=== PATIENT | female | born 1965 | race Caucasian/White ===

== ENCOUNTER 2016-09-28 11:57 | Emergency (ER) | payer OTHER ==
[~2016-09-28 11:57] MED LIST: ACYCLOVIR PO; ALBUTEROL17 GM INH; AMBIEN; AMBIEN10 MG PO; ANSAID100 MG PO; ATIVAN0.5 M1 PO; BACLOFEN10 MG PO; BACTRIM DS TABL1 TA1 PO; BACTRIM DS TABL1 TAB PO; BENZONATATE PO; BP PILL; CATAFLAM50 MG PO; CATAPRES0.1 MG PO; CELEXA; CELEXA PO; CIPRO PO; COGENTIN PO; DARVOCET-N 1001 TA1 DOB; DARVOCET-N 1001 TA1 PO; DICLOFENAC PO; ERYTHROMYCIN O3.5 G1 OD; FLEXERIL PO; FLEXERIL10 M1 PO; FLEXERIL10 MG PO; HALDOL PO; HYDROCHLOROTHIA25 MG PO; IBUPROFEN PO; IBUPROFEN800 MG PO; KLONOPIN; KLONOPIN PO; KLONOPIN0.5 MG PO; KLONOPIN1 MG PO; LORTAB 10-5001 EACH PO; LORTAB 5/500 TA1 TA1 PO; LORTAB 7.5-5001 TAB PO; MEDROL PO; MOBIC PO; NAPROSYN500 MG PO; NAPROXEN PO; NEURONTIN300 MG PO; NO MEDICATIONS; PERCOCET; PERCOCET 10/3251 TAB; PERCOCET PO; PHENERGAN25 M1 DOB; PHENERGAN25 MG PO; PREDNISONE PO; PRENATAL FORMUL1 TA3 PO; PRILOSEC20 MG PO; PYRIDIUM PO; REMERON; ROBAXIN500 MG PO; THIAMINE HCL100 MG PO; TRAZODONE PO; ULTRAM PO; UNKNOWN BP MED; UNKNOWN PAIN MED; VICODIN 5/1 TAB 5/50 PO; VICODIN 5/500 T1 TAB PO; VITAL-D RX TABL1 TAB PO; VOLTAREN 0.1%2.5 M1 OD; VOLTAREN75 MG PO; ZOFRAN PO
[2016-10-01] MEDS ORDERED: NEURONTIN PO (15:48)
[2016-10-01] MEDS ORDERED: KLONOPIN PO (15:49)
[2016-10-01] MEDS ORDERED: LOPRESSOR PO (15:49)
[2016-10-01] MEDS ORDERED: HYDROCODON-ACE1 EAC5 PO (17:15)
[2016-10-01] MEDS ORDERED: BACTRIM DS TABL1 TA1 PO (17:15)
[2016-10-01] MEDS ORDERED: IBUPROFEN PO (17:16)
[2016-11-01] MEDS ORDERED: LISINOPRIL PO (04:40)
== END 2016-09-28 12:30 | disposition home or self-care (01) ==
LOC: CED 11:57
DX: T25.221A Burn of second degree of right foot, initial encounter (principal); L03.115 Cellulitis of right lower limb; F17.200 Nicotine dependence, unspecified, uncomplicated; I10 Essential (primary) hypertension; Z23 Encounter for immunization; X08.8XXA Exposure to other specified smoke, fire and flames, initial encounter; Y92.009 Unspecified place in unspecified non-institutional (private) residence as the place of occurrence of the external cause
CPT/HCPCS: 90471; 90715; 99283

== ENCOUNTER 2016-11-01 05:33 | Emergency (ER) | payer OTHER ==
[~2016-11-01 05:33] MED LIST changes: +HYDROCODON-ACE1 EAC5 PO; +LISINOPRIL PO; +LOPRESSOR PO; +NEURONTIN PO
== END 2016-11-01 10:58 | disposition home or self-care (01) ==
LOC: SED 05:33
DX: F41.1 Generalized anxiety disorder (principal); F10.129 Alcohol abuse with intoxication, unspecified; F41.8 Other specified anxiety disorders; F17.210 Nicotine dependence, cigarettes, uncomplicated; Z88.5 Allergy status to narcotic agent; Z79.899 Other long term (current) drug therapy
CPT/HCPCS: 96372; 99283; J2060

== ENCOUNTER 2016-11-21 02:28 | Emergency (ER) | payer OTHER ==
[2016-11-21 02:15] LABS: URINE SOURCE CLEAN CATCH
[2016-11-21 02:17] LABS: URINE APPEARANCE CLEAR; URINE BILIRUBIN NEG (NEG); URINE BLOOD NEG (NEG); URINE COLOR YELLOW; URINE GLUCOSE NEG (NORM); URINE KETONE NEG (NEG); URINE LEUKOCYTE ESTERASE 1+ (NEG); URINE NITRATE NEG (NEG); URINE PROTEIN NEG (NEG); URINE SPECIFIC GRAVITY 1.015 (1.003-1.035); URINE UROBILINOGEN 0.2 MG/DL (NORM)
[2016-11-21 02:18] LABS: MICRO INDICATED? YES
[2016-11-21 02:24] LABS: CULTURE INDICATED? YES; URINE BACTERIA NEG (NEG); URINE MUCUS PRESENT; URINE SQUAMOUS EPITHELIAL CELL MODERATE /[HPF]
[2016-11-21] MEDS ORDERED: CIPRO250 M1 (17:12)
[2016-11-21] MEDS ORDERED: ZOFRAN (17:12)
[2016-11-21] MEDS ORDERED: TYLENOL #3 (17:12)
== END 2016-11-21 03:02 | disposition home or self-care (01) ==
LOC: SED 02:28
PROVIDERS: Emergency Medicine
DX: N15.9 Renal tubulo-interstitial disease, unspecified (principal); I10 Essential (primary) hypertension; M54.9 Dorsalgia, unspecified; G89.29 Other chronic pain; Z88.8 Allergy status to other drugs, medicaments and biological substances; F17.210 Nicotine dependence, cigarettes, uncomplicated; Z88.5 Allergy status to narcotic agent
CPT/HCPCS: 81003; 87086; 96372; 99283; J2360

== ENCOUNTER 2016-11-21 17:31 | Emergency (ER) | payer OTHER ==
[~2016-11-21 17:31] MED LIST changes: +CIPRO250 M1; +TYLENOL #3; +ZOFRAN
[2016-11-21 17:41] LABS: URINE SOURCE CLEAN CATCH
[2016-11-21 17:45] LABS: URINE APPEARANCE CLEAR; URINE BILIRUBIN NEG (NEG); URINE BLOOD NEG (NEG); URINE COLOR YELLOW; URINE GLUCOSE NEG (NORM); URINE KETONE TRACE (NEG); URINE LEUKOCYTE ESTERASE TRACE (NEG); URINE NITRATE NEG (NEG); URINE PROTEIN NEG (NEG); URINE SPECIFIC GRAVITY 1.025 (1.003-1.035)
[2016-11-21 17:46] LABS: BASOPHIL# 0.1 X10e3 (0-0.3); BASOPHIL% 1.2 % (0-2.5); EOSINOPHIL# 0.3 X10e3 (0-0.7); EOSINOPHIL% 5.3 % (0.0-7.0); HEMATOCRIT 41.4 % (35.0-45.0); HEMOGLOBIN 14.3 gm/dL (12.0-16.0); LYMPHOCYTE# 1.7 X10e3 (1.0-3.5); LYMPHOCYTE% 29.7 % (17.0-45.0); MEAN CELL VOLUME 99.7 FL (83-96); MEAN CORPUSCULAR HEMOGLOBIN 34.4 PG (28-34); MEAN CORPUSCULAR HGB CONC 34.5 g/dL (30-36); MONOCYTE# 0.5 X10e3 (0-1.0); NEUTROPHIL# 3.2 X10e3 (1.5-7.1); NEUTROPHIL% 54.8 % (40-75); PLATELET COUNT 189 X10e3 (140-420); RED BLOOD COUNT 4.15 X10e (3.90-5.30); RED CELL DISTRIBUTION WIDTH 15.7 % (11.0-15.5); WHITE BLOOD COUNT 5.9 X10e3 (4.0-10.5)
[2016-11-21 17:48] LABS: MICRO INDICATED? YES
[2016-11-21 17:48] LABS: DIFF IND NO
[2016-11-21 17:55] LABS: CULTURE INDICATED? YES; URINE BACTERIA 1+ (NEG); URINE RBC 0-2 /[HPF] (0-2); URINE SQUAMOUS EPITHELIAL CELL FEW /[HPF]
[2016-11-21 18:26] LABS: ALBUMIN SERUM 4.4 g/dL (3.5-5.0); BILIRUBIN, DIRECT 0.1 mg/dL (0.0-0.2); BILIRUBIN,INDIRECT 0.2 mg/dL (0.0-0.9); BILIRUBIN,TOTAL 0.3 mg/dL (0.2-2.0); BUN/CREATININE RATIO 16.66; CALCIUM SERUM 8.8 mg/dL (8.4-10.2); CREATININE SERUM 0.9 mg/dL (0.6-1.4); GLOM FILT RATE Estimated 74.6 mL/min (>60); PROTEIN TOTAL SERUM 7.8 g/dL (6.0-8.3)
[2016-11-21 18:33] LABS: MAGNESIUM 1.8 mg/dL (1.6-3.0)
[2016-11-21 18:40] LABS: AMPHETAMINE NEG (NEG); BARBITURATES NEG (NEG); BENZODIAZEPINES NEG (NEG); COCAINE NEG (NEG); TRICYCLIC ANTIDEPRESSANTS POS (NEG); U METHADONE NEG (NEG)
== END 2016-11-21 19:20 | disposition home or self-care (01) ==
LOC: SED 17:31
PROVIDERS: Physician Assistant
DX: M54.6 Pain in thoracic spine (principal); I10 Essential (primary) hypertension; F41.9 Anxiety disorder, unspecified; F17.210 Nicotine dependence, cigarettes, uncomplicated
CPT/HCPCS: 36415; 80048; 80076; 80307; 81003; 83690; 83735; 85025; 87086; 96361; 96374; 99284; J2405

== ENCOUNTER 2016-11-24 18:55 | Emergency (ER) | payer OTHER ==
--- NOTE | ~2016-11-24 | EKG ---
PATIENT: KRISSY BRADLEY UNIT #: [id number] Ventricular Rate: 74 BPM Atrial Rate: 74 BPM P-R Interval: 128 ms QRS Duration: 92 ms Q-T Interval: 416 ms QTC Calculation(Bezet): 461 ms P [place]: 66 degrees Calculated R [place]: 66 degrees Calculated T [place]: 49 degrees Diagnosis Line: Normal sinus rhythm Diagnosis Line: Normal ECG Diagnosis Line: When compared with ECG of 31-AUG-2016 11:28, Diagnosis Line: No significant change was found Diagnosis Line: Confirmed by CRISTHIAN ARENAS MD ([id number]) on 11/25/2016 Diagnosis Line: 10:42:44 PM INTERPRETING MD: DEEPA LEON
--- NOTE | ~2016-11-24 | CR72 ---
[facility] A Service of [facility] RADIOLOGY TEXT RESULTS PATIENT: KRISSY BRADLEY LOCATION: [facility] : [birth year] UNIT #: [id number] AGE: [address]: Izabel Lozano MD SEX: F ORDER DR: [id number] [facility] [address] [place], [place] [address] [id number] MR#: [id number] Acc #: [id number] NAME: KRISSY BRADLEY : 1965 SEX: F STUDY DATE/TIME: 11/24/2016 19:19 UNIT: [facility] ROOM: STUDY DESCRIPTION: CR Chest Single View Portable Attending Physician: Michael Mills M.D. Ordering Physician: Michael Mills M.D. Primary Care Physician: Oswald Sanches M.D. MEDICAL IMAGING REPORT This report is preliminary unless electronic signature is present EXAM Portable chest. DATE OF EXAM 11/24/2016 INDICATIONS 51-year-old female with chest pain, dizziness, syncope today. COMPARISON 07/24/2016 FINDINGS Lungs well expanded. No acute infiltrate. Heart size stable. Visualized osseous structures are unremarkable. IMPRESSION No active disease. Dictated by... Kalin Wasserman M.D. THIS IS AN ELECTRONICALLY VERIFIED REPORT Kalin Wasserman M.D. at 11/25/2016 10:04 AM MAYNOR/deon TD: 11/24/2016 23:41 JOB #: [id number] MEDICAL IMAGING REPORT Page 1 of 1 COPY
[2016-11-24 19:06] LABS: BASOPHIL% 0.7 % (0-2.5); EOSINOPHIL# 0.3 X10e3 (0-0.7); EOSINOPHIL% 5.2 % (0.0-7.0); HEMATOCRIT 37.9 % (35.0-45.0); HEMOGLOBIN 12.5 gm/dL (12.0-16.0); LYMPHOCYTE# 1.8 X10e3 (1.0-3.5); LYMPHOCYTE% 31.1 % (17.0-45.0); MEAN CELL VOLUME 100.8 FL (83-96); MEAN CORPUSCULAR HEMOGLOBIN 33.3 PG (28-34); MEAN PLATELET VOLUME 8.9 FL (6.5-11.5); MONOCYTE# 0.5 X10e3 (0-1.0); MONOCYTE% 9.2 % (3.0-12.0); NEUTROPHIL# 3.2 X10e3 (1.5-7.1); NEUTROPHIL% 53.8 % (40-75); PLATELET COUNT 135 X10e3 (140-420); RED BLOOD COUNT 3.76 X10e (3.90-5.30); RED CELL DISTRIBUTION WIDTH 15.3 % (11.0-15.5); WHITE BLOOD COUNT 5.9 X10e3 (4.0-10.5)
[2016-11-24 19:11] LABS: DIFF IND NO
[2016-11-24 19:26] LABS: ALBUMIN SERUM 3.9 g/dL (3.5-5.0); ALKALINE PHOSPHATASE 62 U/L (32-92); ALT (SGPT) 17 U/L (10-40); AST (SGOT) 26 U/L (10-42); BILIRUBIN, DIRECT 0.1 mg/dL (0.0-0.2); BILIRUBIN,INDIRECT 0.7 mg/dL (0.0-0.9); BILIRUBIN,TOTAL 0.8 mg/dL (0.2-2.0); BLOOD UREA NITROGEN 27 mg/dL (9-23); BUN/CREATININE RATIO 24.54; CALCIUM SERUM 8.3 mg/dL (8.4-10.2); CARBON DIOXIDE 29 mmol/L (22-31); CHLORIDE 101 mmol/L (100-111); CREATININE SERUM 1.1 mg/dL (0.6-1.4); GLOM FILT RATE Estimated 58.5 mL/min (>60); GLUCOSE FASTING 80 mg/dL (70-110); PROTEIN TOTAL SERUM 6.7 g/dL (6.0-8.3); SALICYLATE <4.0 mg/dL; SODIUM 138 mmol/L (135-145)
[2016-11-24 19:30] LABS: ACETAMINOPHEN <10 ug/mL; ALCOHOL BLOOD <5 mg/dL (0)
[2016-11-24 20:03] LABS: URINE SOURCE CLEAN CATCH
[2016-11-24 20:09] LABS: URINE APPEARANCE CLEAR; URINE BILIRUBIN NEG (NEG); URINE BLOOD NEG (NEG); URINE COLOR DK YELLOW; URINE GLUCOSE NEG (NEG); URINE KETONE TRACE (NEG); URINE LEUKOCYTE ESTERASE NEG (NEG); URINE NITRATE NEG (NEG); URINE PH 5.5 (5-8); URINE PROTEIN TRACE (NEG); URINE SPECIFIC GRAVITY 1.039 (1.003-1.035)
[2016-11-24 20:14] LABS: CULTURE INDICATED? NO
[2016-11-24 20:21] LABS: BARBITURATES NEG (NEG); TRICYCLIC ANTIDEPRESSANTS POS (NEG); U METHADONE NEG (NEG)
[2016-11-24 20:42] LABS: POC - CKMB <1.0 ng/mL (0.0-7.9); POC - TROPONIN <0.05 ng/mL (<=0.05)
[2016-11-24 20:54] LABS: SALICYLATE <4.0 mg/dL
[2016-11-24 20:56] LABS: ACETAMINOPHEN <10 ug/mL
[2016-11-24 23:00] LABS: POC - CKMB <1.0 ng/mL (0.0-7.9); POC - TROPONIN <0.05 ng/mL (<=0.05)
== END 2016-11-25 04:27 ==
LOC: CED 18:55
PROVIDERS: Emergency Medicine
DX: R55 Syncope and collapse (principal); F17.210 Nicotine dependence, cigarettes, uncomplicated; F41.9 Anxiety disorder, unspecified; Z88.5 Allergy status to narcotic agent; Z79.899 Other long term (current) drug therapy
CPT/HCPCS: 36415; 51701; 71010; 80048; 80076; 80307; 81003; 82553; 84484; 84703; 85025; 93005; 99285; G0480

== ENCOUNTER 2016-11-25 05:25 | Inpatient (IN) | payer OTHER ==
--- NOTE | ~2016-11-25 | A ---
[facility] DATE: 11/25/16 Patient: KRISSY BRADLEY Physician: LILY Address: [facility] [employer] Room/Bed: [address], Zip: [place] [address] Admit Date: 11/25/16 Date of : [birth year] Height: 5 7 Weight: [phone] NUTRITIONAL ASSESSMENT: REASON: LOW BMI (18.8) PATIENT ADMITTED FOR PRESCRIPTION PILL OVERDOSE PMH: HX SUBSTANCE ABUSE Anthropometrics: HT: 5'7", WT: 120#, BMI: 18.8, %IBW: 89 Labs: 11/24/16- BUN: 27, CA: 8.3, GFR: 58.5 Meds: SEROQUEL, DETOX PROTOCOL Assessment: PHILIP IS A 51 Y/O FEMALE ADMITTED FOR A PRESCRIPTION PILL OVERDOSE. SHE WAS FOUND ON THE FLOOR UNRESPONSIVE. PATIENT IS CURRENTLY UNEMPLOYED, LIVES WITH HER BOYFRIEND, SMOKES 1 PPD, AND DENIES SUBSTANCE ABUSE; HOWEVER PATIENT TOOK AN EXCESSIVE AMOUNT OF PRESCRIBED MEDICATION. PATIENT HAS A HX OF INPATIENT/OUTPATIENT CHEMICAL DEPENDENCY TREATMENT. PATIENT STATED A GOOD APPETITE WITH NO RECENT WEIGHT CHANGES. CURRENT PO INTAKES ARE UNAVAILABLE D/T PATIENT VERY RECENTLY ADMITTED TO FACILITY. PATIENT WAS NOTED TO BE VERY IRRITABLE AND UNCOOPERATIVE DURING ASSESSMENT. THERE ARE NO SKIN OR GI ISSUES NOTED ATT. PATIENT IS ON A REGULAR DIET WITH NO CAFFEINE. Dx: INADEQUATE NUTRIENT INTAKE R/T CURRENT CONDITION, SUBSTANCE ABUSE AEB LOW BMI, <90% OF IBW Intervention: REGULAR DIET, MEDS PER MD, PSYCH Monitoring, Evaluation and Goals: 1. ADEQUATE PO INTAKES >50% OF MEALS 2. PREVENT, CORRECT MICRO/MACRO NUTRIENT DEFICIENCIES 3. WEIGHT; PREVENT WEIGHT LOSS MONITOR: WEIGHTS, LABS, PO/FLUID INTAKES Recommendations: 1. CONTINUE A REGULAR DIET WITH NO CAFFEINE TOLERATED. OFFER SNACKS BETWEEN MEALS. IF PATIENT HAS C/O HUNGER PLEASE SEND ORDER FOR LARGE PORTION ENTREES AND RD WILL APPROVE 2. ENCOURAGE ADEQUATE PO AND FLUID INTAKES 3. IF PATIENT'S PO INTAKES ARE BELOW 50% OF MEALS PLEASE ORDER ENSURE BID TO PROMOTE ADEQUATE KCAL AND PROTEIN INTAKES [facility] DATE: 11/25/16 Patient: KRISSY BRADLEY Physician: LILY Address: [facility] Room/Bed: [facility] [facility], Zip: [place] [address] Admit Date: 11/25/16 Date of : [birth year] Height: 5 7 Weight: [phone] 4. OBTAIN WEIGHTS ROUTINELY (EVERY 3-4 DAYS) RD TO F/U PER PROTOCOL AND PRN R/T PATIENT MILDLY COMPROMISED Respectfully, RUTH CHAPMAN, CAROLYN, LD [facility] cc: client file
--- NOTE | ~2016-11-25 | PA ---
Unit #: [id number] #: [id number] Patient: KRISSY BRADLEY [id number] [place] [address] [id number] MR#: [id number] NAME: KRISSY BRADLEY ROOM: P178 Age: 51 Sex: F Admission Date: 11/25/2016 : 1965 Date of Assessment: 11/25/2016 Attending Physician: Medardo Mcdonald M.D. Admitting Physician: Medardo Mcdonald M.D. Primary Care Physician: Oswald Sanches M.D. PSYCHIATRIC ASSESSMENT IDENTIFYING INFORMATION The patient is a 51-year-old white female brought to this facility by her boyfriend related to her decreasing back pain and abuse of alcohol. CHIEF COMPLAINT None given. INFORMANT(S) Patient, reliability is fair. HISTORY OF PRESENT ILLNESS The patient is a 51-year-old white female admitted to the hospital complaining of severe back pain. The patient had reportedly been found out by her boyfriend at home. The patient reports that this was because she has been using alcohol. She vehemently denies abuse of her prescribed medications which she takes for severe back pain. These include hydrocodone, cyclobenzaprine, clonazepam, Neurontin, and Tylenol No. 3. The patient today complains of severe back and does appear to be in some physical discomfort during evaluation. She vehemently denies suicidal ideation. She states that she has been drinking a pint of hard liquor on a daily basis. She vehemently denies any abuse of her prescribed pain medications. She has no prior history of psychiatric treatment per her report and has never been psychiatrically hospitalized per her report. PAST PSYCHIATRIC HISTORY None. PAST MEDICAL HISTORY Significant for history of lower back pain. MEDICATIONS Seroquel, Neurontin, clonazepam, hydrocodone, Naproxen, metoprolol, cyclobenzaprine, Tylenol No. 3. ALLERGIES Morphine. FAMILY HISTORY Noncontributory. SOCIAL HISTORY The patient lives with her fiance. She does not work outside the home. She reports alcohol use as noted previously and is a smoker. Unit #: [id number] #: [id number] Patient: KRISSY BRADLEY MENTAL STATUS EXAMINATION Examination at this time reveals the patient to be a well-developed well-nourished white female appearing her stated age. She appears to be in significant physical distress and move throughout the interview attempting to gain a position of comfort. She is awake, alert, and oriented in all spheres. Her mood is euthymic, her affect congruent. Speech is generally well coherent. There are no gross deficits in memory or cognition noted. Intelligence is judged to be in the average range based on fund of knowledge. The patient is cooperative throughout the interview. She is currently denying suicidal or homicidal ideation or psychotic features. His judgment and insight appear to be reasonably intact. ASSETS AND LIABILITIES The patient's assets: To be assessed. Liabilities: Chronic health issues. DIAGNOSTIC IMPRESSION 1. Alcohol use disorder. 2. Chronic pain. TREATMENT PLAN The patient is requesting discharge at this time. She had come to this facility expecting that she will be able to continue her prescribed clonazepam and opioid medications. Upon learning that these medications cannot be continued given her alcohol history, the patient is requesting discharge and has not felt to meet criteria for involuntary hospitalization, and discharge is ordered. Dictated by... Medardo Mcdonald M.D. Kari TD: 11/25/2016 14:13 JOB #: [id number] PSYCHIATRIC ASSESSMENT Page 1 of 1 X Medardo Mcdonald MD X PSYCHIATRIC ASSESSMENT
--- NOTE | ~2016-11-25 | HP ---
Unit #: [id number] #: [id number] Patient: LAURA BRADLEY [id number] [place] [address] [id number] MR#: [id number] NAME: LAURA BRADLEY ROOM: P178 Age: 51 Sex: F Admission Date: 11/25/2016 : 1965 Attending Physician: Medardo Mcdonald M.D. Admitting Physician: Medardo Mcdonald M.D. Primary Care Physician: Oswald Sanches M.D. HISTORY AND PHYSICAL Laura is a 51 year old who was admitted and discharged within the first 24 hours. She was not seen for an H and P. Dictated by... Saida Nunez P.A.-C. for Cary Marroquin/jay TD: 11/25/2016 20:25 JOB #: [id number] HISTORY AND PHYSICAL Page 1 of 1 X Saida Nunez HISTORY AND PHYSICAL
--- NOTE | ~2016-11-25 | DS ---
Unit #: [id number] #: [id number] Patient: KRISSY BRADLEY [id number] [place] [address] [id number] MR#: [id number] NAME: KRISSY BRADLEY ROOM: P178 Age: 51 Sex: F Admission Date: 11/25/2016 : 1965 Discharge Date: 11/25/2016 Attending Physician: Medardo Mcdonald M.D. Primary Care Physician: Oswald Sanches M.D. DISCHARGE SUMMARY REASON FOR ADMISSION The patient is a 51-year-old white female, admitted after having been found down by her fiance. HOSPITAL COURSE The patient was admitted briefly to the [facility] unit. She was seen by this physician on the afternoon of 11/25. At that time, the patient demanded re-initiation of previously prescribed clonazepam, Neurontin, and opioid medication given her complaints of severe back pain. It was explained to the patient that given her substance abuse history, i.e. abuse of alcohol that we would not be able to continue these medications. The patient had denied suicidal ideation at the time of admission stating that she had and again denied suicidal ideation. When seen by this physician on 11/25/2016, she demanded discharge from the hospital citing her displeasure with discontinuation of her opioid pain medications and clonazepam. She was not felt to meet criteria for ongoing involuntary hospitalization and discharge was ordered. FINAL DIAGNOSES Alcohol use disorder, chronic back pain, hypertension. DISPOSITION AND DISCHARGE The patient was discharged on following medications; hydrocodone 5/325 one tablet q.6 hours p.r.n. pain, metoprolol 50 mg b.i.d. for hypertension, naproxen 500 mg b.i.d. p.r.n. pain, cyclobenzaprine 10 mg q.8 hours p.r.n. pain, codeine NO. 3 one to two tablets q.6 hours p.r.n. pain, Seroquel 50 mg at h.s. for sleep, Neurontin 300 mg t.i.d. for anxiety, clonazepam 0.5 mg t.i.d. p.r.n. anxiety. DISCHARGE INSTRUCTIONS No dietary or physical restrictions were placed on the patient at the time of discharge. FOLLOWUP Followup will take place through the auspices of community mental health resources. PROGNOSIS The patient's prognosis is considered fair. Dictated by... Medarod Mcdonald M.D. Unit #: [id number] #: [id number] Patient: KRISSY BRADLEY TULIO/rayna TD: 11/26/2016 02:24 JOB #: [id number] DISCHARGE SUMMARY Page 1 of 1 X Medardo Mcdonald MD X DISCHARGE SUMMARY
[2016-11-25 12:25] LABS: BASOPHIL% 0.6 % (0-2.5); EOSINOPHIL# 0.3 X10e3 (0-0.7); EOSINOPHIL% 5.2 % (0.0-7.0); HEMATOCRIT 36.5 % (35.0-45.0); HEMOGLOBIN 12.2 gm/dL (12.0-16.0); LYMPHOCYTE# 1.1 X10e3 (1.0-3.5); LYMPHOCYTE% 21.2 % (17.0-45.0); MEAN CELL VOLUME 100.1 FL (83-96); MEAN CORPUSCULAR HEMOGLOBIN 33.3 PG (28-34); MEAN CORPUSCULAR HGB CONC 33.3 g/dL (30-36); MEAN PLATELET VOLUME 10.1 FL (6.5-11.5); MONOCYTE# 0.3 X10e3 (0-1.0); MONOCYTE% 6.3 % (3.0-12.0); NEUTROPHIL# 3.6 X10e3 (1.5-7.1); NEUTROPHIL% 66.7 % (40-75); PLATELET COUNT 130 X10e3 (140-420); RED BLOOD COUNT 3.65 X10e (3.90-5.30); RED CELL DISTRIBUTION WIDTH 15.4 % (11.0-15.5); WHITE BLOOD COUNT 5.4 X10e3 (4.0-10.5)
[2016-11-25 12:39] LABS: ALBUMIN SERUM 3.4 g/dL (3.5-5.0); BILIRUBIN,TOTAL 0.7 mg/dL (0.2-2.0); BUN/CREATININE RATIO 25.55; CALCIUM SERUM 8.1 mg/dL (8.4-10.2); CREATININE SERUM 0.9 mg/dL (0.6-1.4); GLOM FILT RATE Estimated 74.6 mL/min (>60); PROTEIN TOTAL SERUM 5.7 g/dL (6.0-8.3)
[2016-11-25 12:45] LABS: DIFF IND NO
== END 2016-11-25 15:40 | disposition home or self-care (01) | DRG 897 ==
LOC: P1E 05:25
PROVIDERS: Specialist
DX: F10.10 Alcohol abuse, uncomplicated (principal); I10 Essential (primary) hypertension; M54.9 Dorsalgia, unspecified
CPT/HCPCS: 80053; 85025; 86592

== ENCOUNTER 2016-12-19 21:07 | Emergency (ER) | payer OTHER ==
[2016-12-19] MEDS ORDERED: SEROQUEL50 M1 PO (21:21)
[2016-12-19] MEDS ORDERED: NEURONTIN300 MG PO (21:21)
[2016-12-19 21:59] LABS: URINE SOURCE CLEAN CATCH
[2016-12-19 22:01] LABS: URINE APPEARANCE CLEAR; URINE BILIRUBIN NEG (NEG); URINE BLOOD NEG (NEG); URINE COLOR YELLOW; URINE GLUCOSE NEG (NORM); URINE KETONE NEG (NEG); URINE LEUKOCYTE ESTERASE NEG (NEG); URINE NITRATE NEG (NEG); URINE PROTEIN NEG (NEG); URINE SPECIFIC GRAVITY <=1.005 (1.003-1.035); URINE UROBILINOGEN 0.2 MG/DL (NORM)
[2016-12-19 22:05] LABS: MICRO INDICATED? NO
== END 2016-12-19 22:49 | disposition home or self-care (01) ==
LOC: SED 21:07
PROVIDERS: Physician Assistant
DX: G89.29 Other chronic pain (principal); M54.6 Pain in thoracic spine; F17.200 Nicotine dependence, unspecified, uncomplicated
CPT/HCPCS: 81003; 99283

== ENCOUNTER 2017-01-06 22:07 | Emergency (ER) | payer OTHER ==
[~2017-01-06 22:07] MED LIST changes: +SEROQUEL50 M1 PO
[2017-01-06] MEDS ORDERED: REMERON (22:19)
[2017-01-06 23:46] LABS: BASOPHIL% 0.5 % (0-2.5); EOSINOPHIL# 0.3 X10e3 (0-0.7); EOSINOPHIL% 4.6 % (0.0-7.0); HEMATOCRIT 38.8 % (35.0-45.0); HEMOGLOBIN 13.3 gm/dL (12.0-16.0); LYMPHOCYTE# 1.8 X10e3 (1.0-3.5); LYMPHOCYTE% 30.1 % (17.0-45.0); MEAN CORPUSCULAR HEMOGLOBIN 34.5 PG (28-34); MEAN CORPUSCULAR HGB CONC 34.1 g/dL (30-36); MEAN PLATELET VOLUME 8.9 FL (6.5-11.5); MONOCYTE# 0.6 X10e3 (0-1.0); MONOCYTE% 10.1 % (3.0-12.0); NEUTROPHIL# 3.3 X10e3 (1.5-7.1); NEUTROPHIL% 54.7 % (40-75); PLATELET COUNT 130 X10e3 (140-420); RED BLOOD COUNT 3.85 X10e (3.90-5.30); RED CELL DISTRIBUTION WIDTH 14.8 % (11.0-15.5); WHITE BLOOD COUNT 6.1 X10e3 (4.0-10.5)
[2017-01-06 23:47] LABS: DIFF IND NO
[2017-01-06 23:48] LABS: URINE SOURCE CLEAN CATCH
[2017-01-06 23:50] LABS: URINE APPEARANCE CLEAR; URINE BILIRUBIN NEG (NEG); URINE BLOOD NEG (NEG); URINE COLOR YELLOW; URINE GLUCOSE NEG (NORM); URINE KETONE NEG (NEG); URINE LEUKOCYTE ESTERASE 1+ (NEG); URINE NITRATE NEG (NEG); URINE PROTEIN NEG (NEG); URINE SPECIFIC GRAVITY <=1.005 (1.003-1.035); URINE UROBILINOGEN 0.2 MG/DL (NORM)
[2017-01-06 23:53] LABS: MICRO INDICATED? YES; URINE RBC 0-2 /[HPF] (0-2)
[2017-01-06 23:54] LABS: CULTURE INDICATED? NO; URINE BACTERIA NEG (NEG); URINE SQUAMOUS EPITHELIAL CELL OCCAS /[HPF]
[2017-01-07 00:03] LABS: ALBUMIN SERUM 4.5 g/dL (3.5-5.0); ALKALINE PHOSPHATASE 63 U/L (32-92); ALT (SGPT) 19 U/L (10-40); AST (SGOT) 28 U/L (10-42); BILIRUBIN, DIRECT 0.1 mg/dL (0.0-0.2); BILIRUBIN,INDIRECT 0.2 mg/dL (0.0-0.9); BILIRUBIN,TOTAL 0.3 mg/dL (0.2-2.0); BLOOD UREA NITROGEN 14 mg/dL (9-23); BUN/CREATININE RATIO 15.55; CALCIUM SERUM 8.6 mg/dL (8.4-10.2); CARBON DIOXIDE 33 mmol/L (22-31); CHLORIDE 94 mmol/L (100-111); CREATININE SERUM 0.9 mg/dL (0.6-1.4); GLOM FILT RATE Estimated 74.6 mL/min (>60); GLUCOSE FASTING 109 mg/dL (70-110); POTASSIUM 3.1 mmol/L (3.5-5.1); PROTEIN TOTAL SERUM 7.4 g/dL (6.0-8.3); SALICYLATE <4.0 mg/dL; SODIUM 135 mmol/L (135-145)
[2017-01-07 00:04] LABS: AMPHETAMINE NEG (NEG); BARBITURATES NEG (NEG); BENZODIAZEPINES NEG (NEG); COCAINE NEG (NEG); MARIJUANA NEG (NEG); OPIATES POS (NEG); TRICYCLIC ANTIDEPRESSANTS POS (NEG); U METHADONE NEG (NEG)
[2017-01-07 00:06] LABS: ACETAMINOPHEN <10 ug/mL; ALCOHOL BLOOD <5 mg/dL (0)
== END 2017-01-07 01:32 | disposition home or self-care (01) ==
LOC: SED 22:07
PROVIDERS: Emergency Medicine
DX: F19.939 Other psychoactive substance use, unspecified with withdrawal, unspecified (principal); F17.200 Nicotine dependence, unspecified, uncomplicated; Z88.5 Allergy status to narcotic agent; Z79.899 Other long term (current) drug therapy
CPT/HCPCS: 80048; 80076; 80307; 81003; 85025; 96361; 96374; 96375; 96376; 99284; G0480; J2060

== ENCOUNTER 2017-01-27 16:44 | Emergency (ER) | payer OTHER ==
[2017-01-27] MEDS ORDERED: LOPRESSOR (16:48)
[2017-01-28] MEDS ORDERED: BACLOFEN PO (08:47)
[2017-01-28] MEDS ORDERED: FLEXERIL PO (08:47)
== END 2017-01-27 17:47 | disposition home or self-care (01) ==
LOC: SED 16:44
DX: M54.6 Pain in thoracic spine (principal); I10 Essential (primary) hypertension; Z88.5 Allergy status to narcotic agent; Z79.899 Other long term (current) drug therapy
CPT/HCPCS: 96372; 99283; J1885

== ENCOUNTER 2017-01-28 08:40 | Emergency (ER) | payer OTHER ==
[~2017-01-28 08:40] MED LIST changes: +LOPRESSOR
[2017-01-28] MEDS ORDERED: BACLOFEN PO (08:47)
[2017-01-28] MEDS ORDERED: FLEXERIL PO (08:47)
== END 2017-01-28 12:01 | disposition home or self-care (01) ==
LOC: SED 08:40
DX: G89.29 Other chronic pain (principal); M54.5 Low back pain; F17.200 Nicotine dependence, unspecified, uncomplicated; Z79.899 Other long term (current) drug therapy; Z88.5 Allergy status to narcotic agent
CPT/HCPCS: 96372; 99283; J1885